=== PATIENT | male | born 1975 | race African-American/Black ===

== ENCOUNTER 2017-05-28 22:24 | Emergency (ER) | payer MEDICAID ==
[~2017-05-28] VITALS: Ht 177.8 cm; Wt 86.2 kg
[~2017-05-28 22:24] MED LIST: ZYPREXA2.5 MG ORAL
[2017-05-28 22:36] VITALS: BP 148/94
--- NOTE | 2017-05-28 22:42 | Emergency Room Report ---
History of Present Illness General Chief Complaint: Suicidal Source: Family Member, EMS Present Illness HPI Is a 41-year-old male with history of schizophrenia. He takes fracture the. He was brought in for suicidal thoughts and attempt. Father car 911 because he started to himself. He had a bungee cord around his neck. Is a questionable of a knife but police could not find any denies. Unable to get any other history from patient. Previous psychiatric admission. History is through EMS, police and father who gave report to EMS. Allergies: Coded Allergies: No Known Allergies (Unverified , 05/29/17) Patient History Past Medical History: see triage record, old chart reviewed, psych hx Past Surgical History: none Family History: none Social History: tobacco use Immunizations: other Reviewed Nursing Documentation: PMH: Agreed, PSxH: Agreed Nursing Documentation-PMH Past Medical History: No History, Except For History Of Psychiatric Problem: Yes - schizophrenia Review of Systems All Other Systems: limited - Patient is not cooperative Physical Exam Vital Signs Date Time Temp Pulse Resp B/P (MAP) Pulse Ox O2 Delivery O2 Flow Rate FiO2 05/28/17 22:07 112 18 148/94 98 Room Air vitals with tachycardia Sp02 EP Interpretation: reviewed, normal General Appearance: alert/responsive, no apparent distress, non-toxic, other - Agitated Head: normocephalic, atraumatic Eyes: PERRL, EOMI ENT: oropharynx normal Neck: supple/symm/no masses Respiratory: effort normal, no rhonchi, no wheezing Cardiovascular: no murmur, gallop, rub Gastrointestinal: non-tender, no mass, non-distended, no rebound/guarding, normal bowel sounds Musculoskeletal: strength & tone normal Neurologic: sensory intact, motor strength/tone normal Suicide Risk Assessment: Suicidal Ideation: Yes Had intent to initiate attempt: Yes Pt's plan for suicide attempt: Yes Has means to complete attempt: Yes Skin: no rash, normal palpation Medical Decision Making ER Course Patient with suicidal attempt. He was very agitated initially. Require sedation and restraint. Once he is calm, will remove restraints one other time. he is more cooperative now. Patient told nurse that he felt depressed and still wants to kill himself. Restraints removed because he has been cooperative. He is medically cleared for psychiatric evaluation. Laboratory Tests Test 05/28/17 23:00 05/29/17 00:00 White Blood Count 10.0 K/UL (4.8-10.8) Red Blood Count 5.36 M/UL (4.70-6.10) Hemoglobin 16.5 G/DL (14.2-18.0) Hematocrit 47.5 % (42.0-52.0) Mean Corpuscular Volume 89 FL (80-99) Mean Corpuscular Hemoglobin 30.9 PG (27.0-31.0) Mean Corpuscular Hemoglobin Concent 34.9 G/DL (32.0-36.0) Red Cell Distribution Width 11.1 % (11.6-14.8) L Platelet Count 218 K/UL (150-450) Mean Platelet Volume 6.3 FL (6.5-10.1) L Neutrophils (%) (Auto) 81.5 % (45.0-75.0) H Lymphocytes (%) (Auto) 10.7 % (20.0-45.0) L Monocytes (%) (Auto) 7.2 % (1.0-10.0) Eosinophils (%) (Auto) 0.0 % (0.0-3.0) Basophils (%) (Auto) 0.6 % (0.0-2.0) Sodium Level 142 mEQ/L (135-145) Potassium Level 3.6 mEQ/L (3.4-4.9) Chloride Level 100 mEQ/L (98-107) Carbon Dioxide Level 26 mEQ/L (20-30) Anion Gap 16 (5-15) H Blood Urea Nitrogen 26 mg/dL (7-23) H Creatinine 1.3 mg/dL (0.7-1.2) H Estimat Glomerular Filtration Rate > 60 mL/min (>60) Glucose Level 115 mg/dL (74-106) H Calcium Level 9.9 mg/dL (8.6-10.2) Total Bilirubin 0.5 mg/dL (0.0-1.2) Aspartate Amino Transf (AST/SGOT) 27 U/L (5-40) Alanine Aminotransferase (ALT/SGPT) 19 U/L (3-41) Alkaline Phosphatase 63 U/L (40-129) Total Protein 8.1 g/dL (6.6-8.7) Albumin 5.0 g/dL (3.5-5.2) Globulin 3.1 g/dL Albumin/Globulin Ratio 1.6 (1.0-2.7) Salicylates Level < 1 mg/dL (10-30) L Acetaminophen Level < 10 ug/mL (10-30) L Serum Alcohol < 10 mg/dL Urine Color Yellow Urine Appearance Clear Urine pH 5 (4.5-8.0) Urine Specific [place] 1.025 (1.005-1.035) Urine Protein 2+ (NEGATIVE) H Urine Glucose (UA) Negative (NEGATIVE) Urine Ketones Negative (NEGATIVE) Urine Occult Blood 4+ (NEGATIVE) H Urine Nitrite Negative (NEGATIVE) Urine Bilirubin Negative (NEGATIVE) Urine Urobilinogen Normal MG/DL (0.0-1.0) Urine Leukocyte Esterase Negative (NEGATIVE) Urine RBC 2-4 /HPF (0 - 0) H Urine WBC 0-2 /HPF (0 - 0) Urine Squamous Epithelial Cells Occasional /LPF Urine Bacteria Occasional /HPF (NONE) Urine Hyaline Casts 0-2 /LPF (NONE) H Urine Fine Granular Casts 0-2 /LPF (NONE) H Urine Mucus Moderate /LPF (NONE/OCC) H Urine Opiates Screen Negative (NEGATIVE) Urine Barbiturates Screen Negative (NEGATIVE) Phencyclidine (PCP) Screen Negative (NEGATIVE) Urine Amphetamines Screen Negative (NEGATIVE) Urine Benzodiazepines Screen Negative (NEGATIVE) Urine Cocaine Screen Negative (NEGATIVE) Urine Marijuana (THC) Screen Negative (NEGATIVE) Lab Results Impression labs normal Rhythm Strip Diag. Results Rhythm Strip Time: 22:42 EP Interpretation: yes Rate: 100 Rhythm: NSR, no PVC's, no ectopy Last Vital Signs Date Time Temp Pulse Resp B/P (MAP) Pulse Ox O2 Delivery O2 Flow Rate FiO2 05/28/17 22:07 112 18 148/94 98 Room Air Status: improved Disposition: XFER TO PSYCH HOSP/UNIT Condition: Stable SOSA LANGFORD M.D. May 28, 2017 22:42
[2017-05-28] MEDS ORDERED: Haloperidol 5mg/ml Inj IM ONE (22:45)
[2017-05-28] MEDS ORDERED: LORazepam Inj 2mg/ml 1ml IM ONE (22:45)
[2017-05-28 22:51] VITALS: BP 147/91
[2017-05-28 23:06] VITALS: BP 150/90
[2017-05-28 23:21] VITALS: BP 145/86
[2017-05-28 23:36] VITALS: BP 145/86
[2017-05-28 23:51] VITALS: BP 147/81
[2017-05-28 23:52] LABS: BASOPHILS % (AUTO) 0.6 % (0.0-2.0); LYMPHOCYTES % (AUTO) 10.7 % (20.0-45.0); MEAN CORPUSCULAR HEMOGLOBIN 30.9 PG (27.0-31.0); MEAN CORPUSCULAR HGB CONC 34.9 G/DL (32.0-36.0); MEAN CORPUSCULAR VOLUME 89 FL (80-99); MEAN PLATELET VOLUME 6.3 FL (6.5-10.1); MONOCYTES % (AUTO) 7.2 % (1.0-10.0); NEUTROPHILS % (AUTO) 81.5 % (45.0-75.0); PLATELET COUNT 218 K/UL (150-450); RED BLOOD COUNT 5.36 M/UL (4.70-6.10); RED CELL DISTRIBUTION WIDTH 11.1 % (11.6-14.8)
[2017-05-28 23:57] LABS: ACETAMINOPHEN < 10 ug/mL (10-30); ALANINE AMINOTRANSFERASE 19 U/L (3-41); ALBUMIN/GLOBULIN RATIO 1.6 (1.0-2.7); ALCOHOL < 10 mg/dL; ANION GAP 16 (5-15); ASPARTATE AMINO TRANSFERASE 27 U/L (5-40); CALCIUM 9.9 mg/dL (8.6-10.2); CARBON DIOXIDE 26 mEQ/L (20-30); CHLORIDE 100 mEQ/L (98-107); CREATININE 1.3 mg/dL (0.7-1.2); GLOMERULAR FILTRATION RATE > 60 mL/min (>60); HEMOLYSIS 8; POTASSIUM 3.6 mEQ/L (3.4-4.9); SODIUM 142 mEQ/L (135-145); TOTAL PROTEIN 8.1 g/dL (6.6-8.7)
[2017-05-29] VITALS (8 sets, daily range): BP systolic 110–147; BP diastolic 69–81
[2017-05-29 00:30] LABS: APPEARANCE,URINE CLEAR; KETONES,URINE NEGATIVE (NEGATIVE); LEUKOCYTE ESTERASE ,URINE NEGATIVE (NEGATIVE); NITRITE,URINE NEGATIVE (NEGATIVE); PH,URINE 5 (4.5-8.0); PROTEIN,URINE 2+ (NEGATIVE); UROBILINOGEN,URINE NORMAL MG/DL (0.0-1.0)
[2017-05-29 00:44] LABS: BACTERIA,URINE OCCASIONAL /HPF; FINE GRANULAR CASTS,URINE 0-2 /LPF; HYALINE CASTS, URINE 0-2 /LPF; MUCUS,URINE MODERATE /LPF (NONE/OCC); SQUAMOUS EPITHELIAL CELL,UR OCCASIONAL /LPF (NONE/OCC); WBC,URINE 0-2 /HPF (0 - 0)
[2017-05-30 02:30] VITALS: BP 138/89
[2017-05-30 04:41] VITALS: BP 128/82
[2017-05-30 09:52] VITALS: BP 132/86
[2017-05-30] MEDS ORDERED: Haloperidol Decanoate 50mg Inj IM ONE (13:45)
--- NOTE | 2017-05-30 13:49 | Consultation ---
History of Present Illness General Chief Complaint: Behavioral Complaint Present Illness HPI 41 yo male with hx of schizophrenia who was placed on hold after his father called 911. The pt attempted to strangulate self with bungee rope. the pt appeared delusional and believed we are being monitor. the pt asked to communicate via writing. the pt remained calm and cooperative throughout the evaluation and answered questioned. the pt stated that he was suicidal due to "problems" however he is not suicidal anymore. the pt has been noncompliant with medications and currently not under a care of a psychiatrist. the pt is not endorsing anxiety, manic, nor depressive sxs. the pt denied homicidal ideations. the pt denied AH however stated that he is being bullied. the pt stated thats his father. the pt stated that he usually takes Zyprexa and agreed to haldol dec. the pt stated that he would like to go back to his parents "Kind of...he still cares about me." the pt sleep and appetite adequate. spoke with mother who stated that the pt has had similar episodes in past the pt has poor insight and does not take meds. the pt has a psychiatrist dr. Teixeira and mom will make an appointment. the pt is under stress as his father is pressuring him to finish school. Allergies: Coded Allergies: No Known Allergies (Unverified , 05/29/17) Medication History Scheduled Olanzapine* (Zyprexa*), 2.5 MG ORAL DAILY, (Reported) Patient History History Provided By: Patient, Medical Record, PMD Healthcare decision maker Resuscitation status Advanced Directive on File Review of Systems Psychiatric: Reports: prior hx, emotional problems, other - persecutory delusion Physical Exam General Appearance: no apparent distress, alert Neurologic: alert, oriented x 3, depressed affect Last 24 Hour Vital Signs Date Time Temp Pulse Resp B/P (MAP) Pulse Ox O2 Delivery O2 Flow Rate FiO2 05/30/17 09:52 98.4 70 14 132/86 97 Room Air 05/30/17 04:41 98.3 89 18 128/82 99 Room Air 05/30/17 02:30 98.9 68 20 138/89 99 Room Air 05/29/17 19:30 97.6 92 15 110/69 97 Room Air Height (Feet): 5 Height (Inches): 10.00 Weight (Pounds): 190 Assessment/Plan Status: stable, progressing Assessment/Plan Schizophrenia CPT - Zyprexa 10mg po qhs - Haldol dec 50mg IM x 1 time - will contact family, the family would like to be discharged. -mom ok to pick the pt up. -dc [id number] barnhart and script for Ridge Lara M.D. May 30, 2017 13:49
[2017-05-30] MEDS ORDERED: ZYPREXA10 MG ORAL (14:36)
--- NOTE | 2017-05-30 14:57 | Emergency Room Report ---
Physical Exam Vital Signs Date Time Temp Pulse Resp B/P (MAP) Pulse Ox O2 Delivery O2 Flow Rate FiO2 05/28/17 22:07 112 18 148/94 98 Room Air 05/28/17 23:06 97.9 Medical Decision Making Diagnostic Impression: Primary Impression: Behavioral disorder Additional Impression: Paranoid schizophrenia ER Course 41-year-old male presents after trying to wrap a bungee cord around his neck. Patient has significant psychiatric history. Noncompliant with his medications Patient placed on 5150 hold by [employer] Patient evaluated by Dr. Calero (psyhciatry); she spoke extensively with the patient. Determined that patient is currently not a danger to himself. He is speaking in calm manner. Patient has good family support. Family is willing to take patient home and patient will be seen by his psychiatrist this week Dr Calero recommended giving Haloperidol deconate and Zyprexa. patient given medications here and remains calm, oriented Patient will be discharged home and will be seen by psychiatry as outpatient Diagnoses-behavioral disorder, paranoid schizophrenia Stable and discharged to home with prescription for Zyprexa. Followup with psychiatry. Return to ED if symptoms recur or worsen Labs Test 05/28/17 23:00 05/29/17 00:00 White Blood Count 10.0 K/UL (4.8-10.8) Red Blood Count 5.36 M/UL (4.70-6.10) Hemoglobin 16.5 G/DL (14.2-18.0) Hematocrit 47.5 % (42.0-52.0) Mean Corpuscular Volume 89 FL (80-99) Mean Corpuscular Hemoglobin 30.9 PG (27.0-31.0) Mean Corpuscular Hemoglobin Concent 34.9 G/DL (32.0-36.0) Red Cell Distribution Width 11.1 % (11.6-14.8) Platelet Count 218 K/UL (150-450) Mean Platelet Volume 6.3 FL (6.5-10.1) Neutrophils (%) (Auto) 81.5 % (45.0-75.0) Lymphocytes (%) (Auto) 10.7 % (20.0-45.0) Monocytes (%) (Auto) 7.2 % (1.0-10.0) Eosinophils (%) (Auto) 0.0 % (0.0-3.0) Basophils (%) (Auto) 0.6 % (0.0-2.0) Sodium Level 142 mEQ/L (135-145) Potassium Level 3.6 mEQ/L (3.4-4.9) Chloride Level 100 mEQ/L (98-107) Carbon Dioxide Level 26 mEQ/L (20-30) Anion Gap 16 (5-15) Blood Urea Nitrogen 26 mg/dL (7-23) Creatinine 1.3 mg/dL (0.7-1.2) Estimat Glomerular Filtration Rate > 60 mL/min (>60) Glucose Level 115 mg/dL (74-106) Calcium Level 9.9 mg/dL (8.6-10.2) Total Bilirubin 0.5 mg/dL (0.0-1.2) Aspartate Amino Transf (AST/SGOT) 27 U/L (5-40) Alanine Aminotransferase (ALT/SGPT) 19 U/L (3-41) Alkaline Phosphatase 63 U/L (40-129) Total Protein 8.1 g/dL (6.6-8.7) Albumin 5.0 g/dL (3.5-5.2) Globulin 3.1 g/dL Albumin/Globulin Ratio 1.6 (1.0-2.7) Salicylates Level < 1 mg/dL (10-30) Acetaminophen Level < 10 ug/mL (10-30) Serum Alcohol < 10 mg/dL Urine Color Yellow Urine Appearance Clear Urine pH 5 (4.5-8.0) Urine Specific [place] 1.025 (1.005-1.035) Urine Protein 2+ (NEGATIVE) Urine Glucose (UA) Negative (NEGATIVE) Urine Ketones Negative (NEGATIVE) Urine Occult Blood 4+ (NEGATIVE) Urine Nitrite Negative (NEGATIVE) Urine Bilirubin Negative (NEGATIVE) Urine Urobilinogen Normal MG/DL (0.0-1.0) Urine Leukocyte Esterase Negative (NEGATIVE) Urine RBC 2-4 /HPF (0 - 0) Urine WBC 0-2 /HPF (0 - 0) Urine Squamous Epithelial Cells Occasional /LPF Urine Bacteria Occasional /HPF (NONE) Urine Hyaline Casts 0-2 /LPF (NONE) Urine Fine Granular Casts 0-2 /LPF (NONE) Urine Mucus Moderate /LPF (NONE/OCC) Urine Opiates Screen Negative (NEGATIVE) Urine Barbiturates Screen Negative (NEGATIVE) Phencyclidine (PCP) Screen Negative (NEGATIVE) Urine Amphetamines Screen Negative (NEGATIVE) Urine Benzodiazepines Screen Negative (NEGATIVE) Urine Cocaine Screen Negative (NEGATIVE) Urine Marijuana (THC) Screen Negative (NEGATIVE) Last Vital Signs Date Time Temp Pulse Resp B/P (MAP) Pulse Ox O2 Delivery O2 Flow Rate FiO2 05/30/17 09:52 98.4 70 14 132/86 97 Room Air Status: improved Disposition: HOME, SELF-CARE Condition: Stable Scripts Olanzapine* (ZYPREXA*) 10 Mg Tablet 10 MG ORAL DAILY, #30 TAB 0 Refills Prov: AZEEM PALOMO M.D. 05/30/[address]: [facility],REFERRING (PCP) Patient Instructions: AZEEM Guevara M.D. May 30, 2017 14:57
[2017-05-30 15:09] VITALS: BP 128/77
[2017-05-30 17:25] VITALS: BP 124/79
== END 2017-05-30 17:25 | disposition home or self-care (01) ==
LOC: EDBD 22:24 → EMR 05-29 00:31
DX: F20.0 Paranoid schizophrenia (principal); T14.91 Suicide attempt; R45.1 Restlessness and agitation; Z78.1 Physical restraint status; F91.9 Conduct disorder, unspecified
CPT/HCPCS: 36415; 80053; 80300; 80329; 81003; 85025; 96372; 99285; J1630; J1631

== ENCOUNTER 2017-06-09 18:52 | Emergency (ER) | payer MEDICAID ==
[~2017-06-09] VITALS: Ht 177.8 cm; Wt 80.3 kg
[~2017-06-09 18:52] MED LIST changes: +ZYPREXA10 MG ORAL
[2017-06-09 19:27] VITALS: BP 117/82
--- NOTE | 2017-06-09 20:33 | Emergency Room Report ---
History of Present Illness General Chief Complaint: General Complaint Source: Patient Present Illness HPI The patient is a 41-year-old male with a history of schizophrenia presenting for return to work note. He was seen in this emergency department May 28 for behavioral disorder and possible suicidal ideation. He was seen by psychiatrist who medically cleared him. He was then seen by outpatient psychiatrist who placed him on Zyprexa 10 mg daily. He states that he is feeling significantly better and denies any feelings of self-harm or suicide ideation. He denies any symptoms at all including nausea, vomiting, fever, chills, headache, dizziness, fatigue or chest pain Allergies: Coded Allergies: No Known Allergies (Unverified , 05/29/17) Patient History Past Medical History: see triage record Pertinent Family History: none Reviewed Nursing Documentation: PMH: Agreed, PSxH: Agreed Nursing Documentation-PMH History Of Psychiatric Problem: Yes Review of Systems All Other Systems: negative except mentioned in HPI Physical Exam Vital Signs Date Time Temp Pulse Resp B/P (MAP) Pulse Ox O2 Delivery O2 Flow Rate FiO2 06/09/17 19:02 98.1 81 16 117/82 97 Room Air Sp02 EP Interpretation: reviewed, normal General Appearance: no apparent distress, alert, GCS 15, non-toxic Head: normocephalic, atraumatic Eyes: bilateral eye normal inspection, bilateral eye PERRL ENT: hearing grossly normal, normal pharynx, no angioedema, normal voice Neck: full range of motion, supple/symm/no masses Respiratory: chest non-tender, lungs clear, normal breath sounds, speaking full sentences Cardiovascular #1: regular rate, rhythm, no edema Musculoskeletal: back normal, gait/station normal, normal range of motion, non- tender Neurologic: alert, oriented x3, responsive, motor strength/tone normal, sensory intact, speech normal Psychiatric: judgement/insight normal, memory normal, mood/affect normal, no suicidal/homicidal ideation Skin: normal color, no rash, warm/dry, well hydrated Lymphatic: no adenopathy Medical Decision Making PA Attestation Dr. Hogue is my supervising physician. Patient management was discussed with my supervising physician Diagnostic Impression: Primary Impression: Behavioral disorder ER Course The patient is a 41-year-old male with a history of schizophrenia presenting for return to work note Differential diagnoses considered but not limited to suicidal ideation, homicidal ideation, depression, psychosis, among others PE: vitals WNL. Unremarkable The patient will continue taking Zyprexa as indicated by his psychiatrist. He has a followup appointment on June 24 which she will keep. He will return to work and is given ER precautions Last Vital Signs Date Time Temp Pulse Resp B/P (MAP) Pulse Ox O2 Delivery O2 Flow Rate FiO2 06/09/17 19:27 98.1 88 16 117/82 97 Room Air Status: improved Disposition: HOME, SELF-CARE Condition: Improved Referrals: [facility],REFERRING (PCP) Patient Instructions: Schizophrenia Additional Instructions: I discussed my findings with the patient. All questions and concerns have been answered. Treatment and medication compliance have been addressed. The patient has a follow up appointment on June 24 which he will keep. Return to ED if symptoms worsen, new symptoms arise, or if needed for any reason. Patient verbalized understanding of discharge instructions. CUBA CHAWLA Jun 09, 2017 20:32
== END 2017-06-09 19:27 | disposition home or self-care (01) ==
LOC: EMR 19:15
DX: F91.9 Conduct disorder, unspecified (principal); F20.9 Schizophrenia, unspecified
CPT/HCPCS: 99282